=== PATIENT | female | born 1995 | race Two or more races ===

== ENCOUNTER 2018-10-09 12:37 | Emergency (ER) | payer MEDICAID ==
[~2018-10-09] VITALS: Ht 162.6 cm; Wt 75.3 kg
[2018-10-09 13:23] LABS: Urine Amorphous Crystal MOD /hpf (None Seen); Urine Bacteria NONE SEEN /hpf (None Seen); Urine Blood Negative /uL (Negative); Urine Mucus FEW (None Seen); Urine Specific Gravity 1.032 (1.001-1.035); Urine WBC 2 /hpf (0 - 5)
[2018-10-09 13:58] VITALS: BP 107/62
[2018-10-09] MEDS ORDERED: KETOROLAC TROMETH 60MG/2ML VIAL IM ONE (14:45)
== END 2018-10-09 15:10 | disposition home or self-care (01) ==
LOC: ER 12:37
DX: R10.2 Pelvic and perineal pain (principal); N83.209 Unspecified ovarian cyst, unspecified side
CPT/HCPCS: 81001; 81025; 96372; 99283; J1885